=== PATIENT | female | born 1965 | race Caucasian/White ===

== ENCOUNTER → 2018-05-11 | Outpatient (CLI) | payer OTHER ==
[~2018-05-11] MED LIST: IBUPROFEN 800800 MG PO; LEVOTHYROXIN0.075 MG PO; NORFLEX100 MG PO; PERCOCET 5-3251 EACH PO; VYVANSE50 MG PO
== END ==
LOC: CAT 07:46
DX: Z13.6 Encounter for screening for cardiovascular disorders (principal); E78.00 Pure hypercholesterolemia, unspecified; I25.10 Atherosclerotic heart disease of native coronary artery without angina pectoris